=== PATIENT | female | born 2000 | race Caucasian/White ===

== ENCOUNTER 2023-02-12 00:34 | Emergency (ER) | payer MEDICAID ==
[~2023-02-12] VITALS: Ht 157.5 cm; Wt 54.4 kg
[2023-02-12 00:47] VITALS: BP_SYST 141; PULSE 95; RESP 16; TEMP 97.9; O2SAT 100
[2023-02-12 01:32] VITALS: BP_SYST 139; PULSE 85; RESP 17; TEMP 98.6; O2SAT 99
== END 2023-02-12 01:32 | disposition home or self-care (01) ==
LOC: SED 00:34
DX: A53.9 Syphilis, unspecified (principal); Z79.899 Other long term (current) drug therapy
CPT/HCPCS: 36415; 86592; 99283